=== PATIENT | female | born 1950 | race Caucasian/White ===

== ENCOUNTER → 2017-05-10 | Outpatient (CLI) | payer OTHER ==
[~2017-05-10] MED LIST: ASPI-496 PO; LEVO5DRO EACHEYE; MULT-208 PO
== END | disposition home or self-care (01) ==
LOC: CFH 09:36
PROVIDERS: ATTEND Family Medicine
DX: Z12.31 Encounter for screening mammogram for malignant neoplasm of breast (principal); M85.88 Other specified disorders of bone density and structure, other site
CPT/HCPCS: 77080; G0202

== ENCOUNTER 2019-06-06 11:51 | Outpatient (CLI) | payer MEDICARE, OTHER | END 2019-06-06 23:59 | disposition home or self-care (01) | LOC: CFH 11:51 | PROVIDERS: ATTEND Family Medicine | DX: Z12.31 Encounter for screening mammogram for malignant neoplasm of breast (principal) | CPT/HCPCS: 77063; 77067 ==

== ENCOUNTER → 2020-06-10 | Outpatient (CLI) | payer MEDICARE, OTHER | END | disposition home or self-care (01) | LOC: CFH 09:23 | PROVIDERS: ATTEND Family Medicine | DX: Z12.31 Encounter for screening mammogram for malignant neoplasm of breast (principal); M85.88 Other specified disorders of bone density and structure, other site; N95.9 Unspecified menopausal and perimenopausal disorder | CPT/HCPCS: 77063; 77067; 77080 ==